=== PATIENT | female | born 1970 | race Caucasian/White ===

== ENCOUNTER 2021-01-06 19:22 | Emergency (ER) | payer BC, SELFPAY ==
[2021-01-06 19:24] VITALS: BP 172/107; PULSE 93; RESP 16; TEMP 36.1; O2SAT 95; BMI 38.4
--- NOTE | 2021-01-06 20:35 | CT_ITS ---
STUDY: CT BRAIN WITHOUT CONTRAST REASON FOR EXAM: Female, 50 years old. Fall backwards possible loss of consciousness head trauma RADIATION DOSAGE (If Supplied By Facility): CTDIvol = ( 44.99 ) mGy, DLP = ( 745.49 ) mGycm TECHNIQUE: Transaxial CT imaging of the brain was performed without administration of intravenous contrast material. Individualized dose optimization techniques were used for this CT. COMPARISON: No relevant priors. FINDINGS: Brain parenchyma is without focal lesions, mass effect, acute intracranial hemorrhage, extra parenchymal fluid collections, hydrocephalus or herniation. The skull is intact. CT/Brain/Head without Contrast IMPRESSION: 1. Normal CT brain. Electronically Signed: Jim Franco MD at 21:24 EDT Tel , Service support ,
--- NOTE | 2021-01-06 20:35 | EKG12_ITS ---
Test Reason : FALL Blood Pressure : / mmHG Vent. Rate : 064 BPM Atrial Rate : 064 BPM P-R Int : 156 ms QRS Dur : 086 ms QT Int : 402 ms P-R-T Axes : 030 032 031 degrees QTc Int : 414 ms Atrial fibrillation Confirmed by JAMARCUS MONTELONGO, SUSU ([id number]), electronic news gathering editor ZARI SCHULZ ([id number]) on 01/09/2021 10:45:22 AM Referred By: Confirmed By:SUSU RICKETTS MD
--- NOTE | 2021-01-06 20:35 | CT_ITS ---
STUDY: CT CERVICAL SPINE WITHOUT CONTRAST REASON FOR EXAM: Female, 50 years old. Injury patient fell backwards hitting head RADIATION DOSAGE (If Supplied By Facility): CTDIvol = ( 26.04 ) mGy, DLP = ( 450.22 ) mGycm TECHNIQUE: High resolution transaxial imaging was performed without contrast material. Sagittal and coronal images were reconstructed. Individualized dose optimization techniques were used for this CT. COMPARISON: None FINDINGS: Craniocervical junction and cervical spine are intact and aligned. Mineralization is normal. Paraspinous soft tissues are normal. There are mild degenerative changes. Spinal canal is patent at all levels. Neural foramina are patent. CT/Spine Cervical without Contras IMPRESSION: 1. No acute osseous injury. Electronically Signed: Jim Franco MD at 21:25 EDT Tel , Service support ,
--- NOTE | 2021-01-06 20:35 | CT_ITS ---
STUDY: CT CHEST WITHOUT CONTRAST REASON FOR EXAM: Female, 50 years old. RADIATION DOSAGE (If Supplied By Facility): CTDIvol = ( 18.99 ) mGy, DLP = ( 656.15 ) mGycm TECHNIQUE: Transaxial imaging was performed without the administration of intravenous contrast material. Individualized dose optimization techniques were used for this CT. COMPARISON: None. FINDINGS: Lungs are clear. Central airways are patent. Pleural surfaces are intact. Mediastinal contents are normal. Cardiac chambers are normal in size and shape. Aorta and pulmonary artery are unremarkable. There is a minimal right diaphragmatic fat hernia. Osseous structures are intact. There is gastric suture line. CT/Chest without Contrast IMPRESSION: Normal chest without acute injury. Electronically Signed: Jim Franco MD at 21:30 EDT Tel , Service support ,
[2021-01-06] MEDS: Ondansetron ODT 4 MG Tablet PO (20:41)
--- NOTE | 2021-01-06 20:54 | EX.ED.DYSGE1 ---
HPI History of Present Illness Chief Complaint: Head Injury Informant: patient Narrative Narrative: 50-year-old female states that somewhere between 5 and 630 she felt her heart racing fast. She apparently fell backwards out of a camper. She states that her upper right back by her shoulder blade hurts and she has a very bad headache and is nauseated. She does not know if she lost any consciousness. She does not know exactly what made her fall. The patient states that she continued to seem disorientated but was able to call her . She states she is not on any blood thinners. [facility] Medical History Anxiety Depression Hypertension Home Medications amlodipine 5 mg PO DAILY 01/06/21 [History Last Taken Unknown] escitalopram oxalate 10 mg PO DAILY 01/06/21 [History Last Taken Unknown] trazodone 50 mg PO QHS PRN 01/06/21 [History Last Taken Unknown] Allergy/AdvReac Type Severity Reaction Status Date / Time Sulfa (Sulfonamide Allergy PT UNSURE Verified 01/06/21 19:24 Antibiotics) OF REACTION morphine AdvReac Hives Verified 01/06/21 19:24 Social History (Updated 01/06/21 @ 20:[address] Damien Tai DO) Smoking Status: Never smoker substance use type: does not use ROS ROS ED Constitutional Constitutional ED: Denies chills, fever(s) or weight loss Eyes Eyes: Denies change in vision or diplopia ENT ENT ED: Denies ear pain, rhinorrhea or sore throat Cardiovascular Cardiovascular: Reports racing heartbeat; Denies chest pain, orthopnea or palpitations Respiratory/Chest Respiratory/Chest: Denies cough, dyspnea or orthopnea Gastrointestinal Gastrointestinal: Reports nausea; Denies abdominal pain, diarrhea or vomiting Genitourinary Genitourinary ED: Denies dysuria, hematuria or urinary frequency Musculoskeletal Musculoskeletal: Denies arthralgias or myalgias Integumentary Denies abscess or rash Neurologic Neurologic: Reports headache(s); Denies weakness Psychiatric Psychiatric: Denies anxiety, depression, suicidal ideation or suicidal thoughts Endocrine Endocrinology: Denies polydipsia, polyphagia or polyuria Allergic/Immunologic Allergic/Immunologic ED: Denies mouth swelling, tongue swelling or urticaria EXAM Physical Exam Const Vital Signs: 01/06/21 19:24 01/06/21 20:44 Temperature 97.0 F L Temperature Source Temporal Pulse Rate 93 Respiratory Rate 16 Respiratory Effort Normal Respiratory Depth Normal Respiratory Pattern Normal Blood Pressure 172/107 H Blood Pressure Mean 128 Pulse Ox 95 Oxygen Delivery Method Room Air Room Air Positive well nourished, well developed and obese General Appearance ED: well developed Nutritional Appearance: obese HEENT Reports normocephalic, head/scalp atraumatic, TM's clear and moist mucous membranes HEENT Narrative: Tenderness to palpation in the occiput no obvious hematoma or abrasions noted tenderness Tympanic Membrane ED: Yes TM's clear Eyes PERRL and EOMs intact bilaterally Neck no lymphadenopathy, supple and no JVD Resp normal respiratory effort and clear to auscultation bilaterally Cardio regular rate, regular rhythm and no murmurs GI normal to inspection, nondistended, normoactive bowel sounds and non-tender Palpation: soft Back/Spine no CVA tenderness and normal ROM Back/Spine Narrative: There is tenderness to palpation over the right thoracic paraspinal musculature/ribs and scapular region. I do not appreciate any hematoma ecchymosis or abrasions. Extremity normal to inspection General Extremety ED: Negative for edema General Extremity: Negative for edema Neuro oriented x3 and CN's II-XII intact bilaterally Sensorium / Orientation: alert Motor Exam: strength 5/5 throughout Psych mental status grossly normal Mood & Affect: Negative for depressed or tearful Skin no rashes or lesions noted and no wounds MDM MDM MDM Narrative Medical decision making narrative: CT of the brain and cervical spine showed no intracranial hemorrhage or acute fracture. CT of the chest showed no obvious pulmonary contusion pneumothorax, or fracture. Patient will be given a dose of Toradol. She has Zofran at home. Would recommend rest and follow-up with her primary care physician Radiography Diagnostic Testing: Clinical Impression(s) from Imaging Studies Brain CT 01/06/21 20:35 IMPRESSION: 1. Normal CT brain. Electronically Signed: Jim Franco MD at 21:24 EDT Tel , Service support , Cervical Spine CT 01/06/21 20:35 IMPRESSION: 1. No acute osseous injury. Electronically Signed: Jim Franco MD at 21:25 EDT Tel , Service support , Chest CT 01/06/21 20:35 IMPRESSION: Normal chest without acute injury. Electronically Signed: Jim Franco MD at 21:30 EDT Tel , Service support , EKG Initial EKG: Attestation: I personally reviewed and interpreted this EKG as follows: Comments: Normal sinus rhythm with a ventricular to 64 bpm Discharge Plan Triage Chief Complaint: Head Injury ED Provider: Damien Tai Dx/Rx/DC Orders Clinical Impression: Contusion of back wall of thorax, Concussion, Cervical strain, acute Instructions: ED Concussion Prescriptions: No Action trazodone 50 mg tablet 50 mg PO QHS PRN (Reason: Sleep) RF: 0 amlodipine 5 mg tablet 5 mg PO DAILY RF: 0 escitalopram oxalate 10 mg tablet 10 mg PO DAILY RF: 0 Primary Care Provider: Care Physician,No Primary Referrals: Care Physician,No Primary [Primary Care Provider] - Activity Restrictions/Additional Instructions: Please follow-up with your primary care physician in 1 week Disposition Disposition: Home, Self Care
[2021-01-06] MEDS: Ketorolac 60 MG/2 ML Vial IM (22:35)
== END 2021-01-06 22:53 | disposition home or self-care (01) ==
PROVIDERS: Emergency Provider Emergency Medicine
DX: S06.0X0A Concussion without loss of consciousness, initial encounter (principal); S20.221A Contusion of right back wall of thorax, initial encounter; S16.1XXA Strain of muscle, fascia and tendon at neck level, initial encounter; F41.9 Anxiety disorder, unspecified; F32.A Depression, unspecified; I10 Essential (primary) hypertension; E66.9 Obesity, unspecified; Z79.899 Other long term (current) drug therapy; W17.89XA Other fall from one level to another, initial encounter; Y93.89 Activity, other specified; Y92.89 Other specified places as the place of occurrence of the external cause; Y99.8 Other external cause status
CPT/HCPCS: 70450; 71250; 72125; 93005; 96372; 99284